=== PATIENT | female | born 1945 | race Caucasian/White ===

== ENCOUNTER 2017-07-19 12:15 | Day surgery (SDC) | payer OTHER ==
[~2017-07-19] VITALS: Ht 167.6 cm; Wt 68.0 kg
[~2017-07-19 12:15] MED LIST: ALEVE220 MG PO; ASPIRIN EC325 MG PO; ASPIRIN325 MG PO; CINNAMON500 MG PO; ENDOCET 5-3251 EACH PO; FISH OIL 1,0001 EAC7 PO; LOVENOX40 MG/0.4 SC; METFORMIN HCL1000 MG PO; NORCO 5/3251 TABLET PO; NORVASC5 MG PO; RAMIPRIL10 MG PO; TOPAMAX100 MG PO; TOPROL XL100 MG PO
[2017-07-19 13:26] VITALS: BP 138/60
[2017-07-19 18:50] VITALS: BP 173/77
[2017-07-19 19:49] VITALS: BP 168/77
== END 2017-07-19 20:00 | disposition home or self-care (01) ==
LOC: SDC 12:15
PROC: 0SPG04Z Removal of Internal Fixation Device from Left Ankle Joint, Open Approach (ICD-10-PCS; principal; 2017-07-19)
DX: T84.629A Infection and inflammatory reaction due to internal fixation device of unspecified bone of leg, initial encounter (principal); Y83.1 Surgical operation with implant of artificial internal device as the cause of abnormal reaction of the patient, or of later complication, without mention of misadventure at the time of the procedure; L03.116 Cellulitis of left lower limb; B95.1 Streptococcus, group B, as the cause of diseases classified elsewhere; M21.371 Foot drop, right foot; M21.372 Foot drop, left foot; K21.9 Gastro-esophageal reflux disease without esophagitis; E11.9 Type 2 diabetes mellitus without complications; I10 Essential (primary) hypertension
CPT/HCPCS: 73600; 76000; 87070; 87075; 87077; 87205; 93005; J0690; J1100; J1170; J2405; J2765; J3010; J7643